=== PATIENT | female | born 1980 | race Caucasian/White ===

== ENCOUNTER 2023-04-14 01:15 | Emergency (ER) | payer MEDICAID, SELFPAY ==
[2023-04-14 01:19] VITALS: BP 130/104; PULSE 103; RESP 18; TEMP 36.6; O2SAT 100; BMI 29.0
--- NOTE | 2023-04-14 01:26 | XRR_ITS ---
PROCEDURE INFORMATION: Exam: XR Chest Exam date and time: 04/14/2023 2:06 AM Age: 43 years old Clinical indication: Cough TECHNIQUE: Imaging protocol: Radiologic exam of the chest. Views: 1 view. COMPARISON: No relevant prior studies available. FINDINGS: Lungs: Unremarkable. No consolidation. Pleural spaces: Unremarkable. No pleural effusion. No pneumothorax. Heart/Mediastinum: Unremarkable. No cardiomegaly. Bones/joints: Unremarkable. XR/XR chest 1V portable [id number] IMPRESSION: No acute findings.
--- NOTE | 2023-04-14 01:27 | W.ED.NAVMDI ---
HPI - Nausea/Vomiting/Diarrhea General: Chief complaint: Nausea/Vomiting/Diarrhea Stated complaint: sob fever phlem Time Seen by Provider: 04/14/23 01:16 Source: patient Mode of arrival: ambulatory Limitations: no limitations History of Present Illness: 43-year-old female states that over the last week she been having cough congestion body aches chills nausea vomiting as well states that she is she needs to cough up phlegm she denies any fevers at home. Denies any worsening proving factors. She denies any chest pain she does have a rash over her upper back is painful with appearance of shingles. Associated nausea: Yes Associated symtoms: Reports fatigue and nausea; Denies chest pain, dysuria or headache(s) Review of Systems Const: Reports: chills, body aches and fatigue; Denies: fever(s) or change in appetite Eyes: Denies: blurry vision or eye discomfort ENMT: Reports: throat pain; Denies: dental pain Card: Denies: chest pain Resp: Reports: non-productive cough; Denies: dyspnea GI: Reports: nausea and vomiting; Denies: abdominal pain or diarrhea : Denies: dysuria Musc: Denies: neck pain or back pain Skin/Breast: Reports: rash Neuro: Denies: headache(s) Physical Exam Const: COMMON NORMALS: no acute distress, patient oriented x3 and healthy appearing HENMT: COMMON NORMALS: normocephalic and atraumatic HEAD & SCALP: normocephalic and atraumatic THROAT: posterior oropharynx normal Eye: COMMON NORMALS: Equal, round and reactive pupils present and EOMs intact bilaterally PUPIL: Yes Equal, round and reactive pupils present Neck/C-Spine: COMMON NORMALS: full ROM and supple Chest: COMMONS NORMALS: normal inspection of the chest and normal palpation of entire chest wall Resp: COMMON NORMALS: normal respiratory effort, No retractions, No use of accessory muscles and clear to auscultation bilaterally AUSCULTATION: clear to auscultation bilaterally Cardio: COMMON NORMALS: regular rate, regular rhythm and No murmurs present (Cardio) RATE: regular rate RHYTHM: regular rhythm GI: COMMON NORMALS: Normal to inspection, nondistended, normoactive bowel sounds present, Soft to palpation, non-tender and no masses PALPATION: Yes Soft to palpation Extremity: COMMON NORMALS: normal to inspection and full ROM Neuro: COMMON NORMALS: patient oriented x3, moves all extremities and no focal motor deficits Psych: COMMON NORMALS: mental status grossly normal, Normal thought process present and cooperative THOUGHT PROCESS: Normal thought process present Skin: COMMON NORMALS: no wounds NARRATIVE SKIN EXAM: Shingles noted to right upper back Course Vital Signs: Vital signs: Vital Signs Temperature 97.9 F 04/14/23 02:23 Pulse Rate 102 H 04/14/23 02:23 Respiratory Rate 16 04/14/23 02:23 Blood Pressure 130/104 04/14/23 02:23 Pulse Oximetry 97 04/14/23 02:23 Oxygen Delivery Me thod Room Air 04/14/23 01:47 MDM - Nausea/Vomiting/Diarrhea Medical Decision Making Patient presents here with vomiting along with cough congestion likely a viral upper respiratory infection she also has shingles as well. Will place her on valacyclovir along with Zofran x-ray blood work here is all normal she is stable for discharge return if worsening. Medical Records I reviewed the patient's medical records. Lab Data I reviewed the patient's lab results. 04/14/23 01:42 04/14/23 01:42 Laboratory Results WBC 8.70 10^3/uL (3.29-11.43) 04/14/23 01:42 RBC 4.68 10^6/uL (3.85-5.65) 04/14/23 01:42 Hgb 13.20 g/dL (11.27-16.99) 04/14/23 01:42 Hct 40.7 % (36-47) 04/14/23 01:42 MCV 87.0 fl (85-98) 04/14/23 01:42 MCH 28.2 pg (27-33) 04/14/23 01:42 MCHC 32.4 g/dL (30-55) 04/14/23 01:42 RDW 12.6 % (12.1-15.1) 04/14/23 01:42 Plt Count 410 10^3/cmm (157-399) H 04/14/23 01:42 MPV 9.3 fL (7.4-10.4) 04/14/23 01:42 Neut % (Auto) 71.4 % 04/14/23 01:42 Lymph % (Auto) 19.3 % 04/14/23 01:42 [place] % (Auto) 6.6 % 04/14/23 01:42 Eos % (Auto) 1.8 % 04/14/23 01:42 Baso % (Auto) 0.7 % 04/14/23 01:42 Neut # (Auto) 6.21 10^3/uL (1.8-7.7) 04/14/23 01:42 Lymph # (Auto) 1.7 10^3/uL (0.8-4.8) 04/14/23 01:42 [place] # (Auto) 0.6 10^3/uL (0.2-0.9) 04/14/23 01:42 Eos # (Auto) 0.2 10^3/uL (0.0-0.8) 04/14/23 01:42 Baso # (Auto) 0.1 10^3/uL (0.0-0.1) 04/14/23 01:42 Nucleated RBC % (auto) 0 % 04/14/23 01:42 Nucleated RBCs # 0.0 /100WBC 04/14/23 01:42 Sodium 140 mmol/L (136-145) 04/14/23 01:42 Potassium 3.9 mmol/L (3.5-5.1) 04/14/23 01:42 Chloride 102 mmol/L (98-107) 04/14/23 01:42 Carbon Dioxide 28 mmol/L (22-29) 04/14/23 01:42 Anion Gap 13.9 (5-19) 04/14/23 01:42 BUN 20 mg/dL (6-20) 04/14/23 01:42 Creatinine 0.9 mg/dL (0.5-0.9) 04/14/23 01:42 GFR Calculation 68.7 mL/min (90-130) L 04/14/23 01:42 Glucose 133 mg/dL (65-115) H 04/14/23 01:42 Calculated Osmolality 295 mOsm/kg (285-295) 04/14/23 01:42 Calcium 9.1 mg/dL (8.5-10.5) 04/14/23 01:42 Total Bilirubin 0.4 mg/dL (0.15-1.2) 04/14/23 01:42 AST 30 U/L (0-32) 04/14/23 01:42 ALT 47 U/L (0-33) H 04/14/23 01:42 Alkaline Phosphatase 145 U/L (35-105) H 04/14/23 01:42 Total Protein 7.7 g/dL (6.6-8.7) 04/14/23 01:42 Albumin 3.8 g/dL (3.5-5.2) 04/14/23 01:42 Globulin 3.9 g/dL (1.3-4.6) 04/14/23 01:42 Lipase 35 U/L (13-60) 04/14/23 01:42 HCG, Qual Negative (Negative) 04/14/23 01:42 Influenza Type A Ag negative (Negative) 04/14/23 01:30 Influenza Type B Ag negative (Negative) 04/14/23 01:30 SARS-CoV-2 Ag (Rapid) Negative (Negative) 04/14/23 01:30 XR interpretation done by ED provider, pending radiology final review ED provider radiology interpretation(s): cxr: no acute abnormality Discharge Plan Discharge Patient Disposition: Home Clinical Impression: Shingles Qualifiers: Herpes zoster complications: without complications Qualified Code(s): B02.9 - Zoster without complications Upper respiratory infection Qualifiers: URI type: unspecified URI Qualified Code(s): J06.9 - Acute upper respiratory infection, unspecified Vomiting Qualifiers: Vomiting type: unspecified Nausea presence: with nausea Qualified Code(s): R11.2 - Nausea with vomiting, unspecified Condition: Stable Prescriptions: New valacyclovir 1 gram tablet 1,000 mg PO BID 7 Days Qty: 14 0RF benzonatate 100 mg capsule 100 mg PO TID PRN (Reason: cough) Qty: 14 0RF ondansetron 4 mg tablet,disintegrating 4 mg PO Q6H PRN (Reason: nausea and vomiting) Qty: 14 0RF Discharge Orders: Discharge ED (Routine); Ordered 04/14/23 Ordered By: Keisha Stoddard Referrals: Olga Lester DO [Family Provider] - 1-3 days Discharge Diet: Advance as tolerated Discharge Activity: Resume usual activity Patient Instructions: Shingles (ED), Upper Respiratory Infection (ED) Coding Level of Care Code ED Mitochondrial Disorders Counselor for Chg Kathrin
[2023-04-14] MEDS: dexamethasone 10 mg/mL INJ IVP (01:40)
[2023-04-14] MEDS: ondansetron 2 mg/ML SDV 2 mL 4 MG IVP (01:41)
[2023-04-14] MEDS: sodium chloride 0.9% 1,000 ML 999 ML IV (01:41)
[2023-04-14 01:47] VITALS: PULSE 114; RESP 20; O2SAT 99
[2023-04-14 01:47] LABS: Basophils # 0.1 10^3/uL (0.0-0.1); Basophils % 0.7 %; Eosinophils # 0.2 10^3/uL (0.0-0.8); Eosinophils % 1.8 %; Hematocrit 40.7 % (36-47); Lymphocytes # 1.7 10^3/uL (0.8-4.8); Lymphocytes % 19.3 %; Mean Corpuscular HGB Conc 32.4 g/dL (30-55); Mean Corpuscular Hemoglobin 28.2 pg (27-33); Mean Platelet Volume 9.3 fL (7.4-10.4); Monocytes # 0.6 10^3/uL (0.2-0.9); Monocytes % 6.6 %; Neutrophils # 6.21 10^3/uL (1.8-7.7); Neutrophils % 71.4 %; Nucleated Red Blood Cells % 0 %; Platelet Count 410 10^3/cmm (157-399); Red Blood Count 4.68 10^6/uL (3.85-5.65); Red Cell Distribution Width 12.6 % (12.1-15.1)
[2023-04-14] MEDS: ipratropium-albuterol 3 mL Neb INHALATION (01:47)
[2023-04-14 01:48] VITALS: BP 130/104; PULSE 117; RESP 18; O2SAT 100
[2023-04-14 01:52] LABS: Influenza A by IFA negative (Negative); Influenza B by IFA negative (Negative)
[2023-04-14 01:57] VITALS: PULSE 120
[2023-04-14 01:59] LABS: HCG, Serum Qual Negative (Negative)
[2023-04-14 02:03] LABS: SARS Covid-2 Antigen Negative (Negative)
[2023-04-14 02:04] LABS: Alanine Aminotransferase 47 U/L (0-33); Albumin Level 3.8 g/dL (3.5-5.2); Alkaline Phosphatase 145 U/L (35-105); Anion Gap 13.9 (5-19); Aspartate Amino Transferase 30 U/L (0-32); Blood Urea Nitrogen 20 mg/dL (6-20); Calcium 9.1 mg/dL (8.5-10.5); Carbon Dioxide 28 mmol/L (22-29); Chloride 102 mmol/L (98-107); Creatinine Clr Calc Pharmacy 87.7206; Globulin 3.9 g/dL (1.3-4.6); Glomerular Filtration Rate 68.7 mL/min (90-130); Glucose 133 mg/dL (65-115); Lipase 35 U/L (13-60); Osmolality Calculated 295 mOsm/kg (285-295); Potassium 3.9 mmol/L (3.5-5.1); Sodium 140 mmol/L (136-145); Total Bilirubin 0.4 mg/dL (0.15-1.2); Total Protein 7.7 g/dL (6.6-8.7)
[2023-04-14 02:10] VITALS: BP 130/104; PULSE 102; RESP 16; O2SAT 97
[2023-04-14 02:23] VITALS: BP 130/104; PULSE 102; RESP 16; TEMP 36.6; O2SAT 97
== END 2023-04-14 02:23 | disposition home or self-care (01) ==
PROVIDERS: Emergency Provider Emergency Medicine; Family Provider Obstetrics & Gynecology
DX: B02.9 Zoster without complications (principal); J06.9 Acute upper respiratory infection, unspecified; R11.2 Nausea with vomiting, unspecified; Z11.52 Encounter for screening for COVID-19
CPT/HCPCS: 71045; 80053; 83690; 84703; 85025; 87426; 87804; 94640; 96361; 96374; 96375; 99284; J1100; J2405; J7030